=== PATIENT | female | born 1985 | race Caucasian/White ===

== ENCOUNTER 2016-06-15 20:02 | Emergency (ER) | payer OTHER ==
[2016-06-15 20:09] VITALS: BP 113/63; PULSE 79; TEMP 98.4; BMI 32.1
[2016-06-15] MEDS ORDERED: diphenhydrAMINE HCL 25 MG CAPSULE (FP) PO ONE (20:09)
--- NOTE | 2016-06-15 20:12 | PDOC ---
History of Present Illness <Rush Jhaveri - Last Filed: 06/15/16 20:10> - General History Source: Patient Exam Limitations: No Limitations - History of Present Illness Initial Comments: 06/15/16 20:12 The patient is a 30 year old female, currently , with no significant past medical history who presents to the emergency department with upper extremity and lower back rash since this morning. She denies any difficulties swallowing or pain in her neck. She denies trying any new soaps or eating any new strange foods. She denies chest pain. She denies fever, chills, headache and dizziness. She denies nausea, vomit, diarrhea and constipation. Allergies: NKA Past surgical history: denies Social History: denies EtOH use, drug use, and tobacco. PCP: Does not have one at the moment. <Jacob Gilliam - Last Filed: 06/15/16 20:13> - General Chief Complaint: Rash Stated Complaint: RASH Time Seen by Provider: 06/15/16 20:06 Past History - Past Medical History Asthma: No Cancer: No Cardiac Disorders: No Diabetes: No HTN: No Seizures: No Thyroid Disease: No - Psycho/Social/Smoking Cessation Hx Suicidal Ideation: No Smoking History: Never smoked Have you smoked in the past 12 months: No Hx Alcohol Use: No Drug/Substance Use Hx: No Substance Use Type: None Hx Substance Use Treatment: No <Rush Jhaveri - Last Filed: 06/15/16 20:10> <Jacob Gilliam - Last Filed: 06/15/16 20:13> - Past Medical History Allergies/Adverse Reactions: Allergies Allergy/AdvReac Type Severity Reaction Status Date / Time No Known Allergies Allergy Verified 07/21/15 10:38 Home Medications: Ambulatory Orders NK [No Known Home Medication] 06/15/16 Review of Systems - Review of Systems Able to Perform ROS?: Yes Comments:: 06/15/16 20:12 GENERAL/CONSTITUTIONAL: No fever or chills. No weakness. HEAD, EYES, EARS, NOSE AND THROAT: No change in vision. No ear pain or discharge. No sore throat. CARDIOVASCULAR: No chest pain or shortness of breath. RESPIRATORY: No cough, wheezing, or hemoptysis. GASTROINTESTINAL: No nausea, vomiting, diarrhea or constipation. GENITOURINARY: No dysuria, frequency, or change in urination. MUSCULOSKELETAL: No joint or muscle swelling or pain. No neck or back pain. SKIN: Yes rash NEUROLOGIC: No headache, vertigo, loss of consciousness, or change in strength/ sensation. ENDOCRINE: No increased thirst. No abnormal weight change. HEMATOLOGIC/LYMPHATIC: No anemia, easy bleeding, or history of blood clots. ALLERGIC/IMMUNOLOGIC: No hives or skin allergy. <Jacob Gilliam - Last Filed: 06/15/16 20:13> *Physical Exam - Vital Signs Last Vital Signs Temp Pulse Resp BP Pulse Ox 98.4 F 79 16 113/63 100 06/15/16 20:07 06/15/16 20:07 06/15/16 20:07 06/15/16 20:07 06/15/16 20:07 - Physical Exam General Appearance: Yes: Nourished, Appropriately Dressed. No: Apparent Distress HEENT: positive: Normal ENT Inspection, Normal Voice Neck: positive: Supple. negative: Tender, Stridor Respiratory/Chest: positive: Lungs Clear, Normal Breath Sounds. negative: Respiratory Distress Cardiovascular: positive: Regular Rhythm, Regular Rate Gastrointestinal/Abdominal: positive: Soft. negative: Tender Integumentary: positive: Normal Color, Rash (TRUNK AND UPPER EXTREMITIES C/W URTICARIA) Neurologic: positive: Fully Oriented, Alert, Normal Mood/Affect, Normal Response , Motor Strength 5/5 <Rush Jhaveri - Last Filed: 06/15/16 20:10> - Vital Signs Last Vital Signs Temp Pulse Resp BP Pulse Ox 98.4 F 79 16 113/63 100 06/15/16 20:07 06/15/16 20:07 06/15/16 20:07 06/15/16 20:07 06/15/16 20:07 <Jacob Gilliam - Last Filed: 06/15/16 20:13> *DC/Admit/Observation/Transfer <Rush Jhaveri - Last Filed: 06/15/16 20:10> - Attestations Scribe Attestion: 06/15/16 20:13 Documentation prepared by Jacob Gilliam, acting as family practice medical doctor for Rush Jhaveri MD. <Jacob Gilliam - Last Filed: 06/15/16 20:13> Diagnosis at time of Disposition: Urticaria - Discharge Dispostion Disposition: HOME Condition at time of disposition: Stable - Patient Instructions Additional Instructions: TAKE MEDICATIONS PRESCRIBED SEE YOUR DOCTOR TOMORROW RETURN IF WORSENING OR NEW SYMPTOMS SPECIALLY DIFFICULTY IN BREATHING OR SWALLOWING, SWELLING, CHANGES IN VOICE
[2016-06-15] MEDS ORDERED: diphenhydrAMINE HCL 50 MG CAPSULE ONE (20:13)
== END 2016-06-15 20:17 | disposition home or self-care (01) ==
LOC: FER 20:02
DX: O26.899 Other specified pregnancy related conditions, unspecified trimester (principal); R21 Rash and other nonspecific skin eruption
CPT/HCPCS: 99281-25

== ENCOUNTER 2016-06-24 13:44 | Emergency (ER) | payer OTHER ==
[2016-06-24 13:59] VITALS: BMI 32.1
--- NOTE | 2016-06-24 18:19 | PDOC ---
[id number] VAGINAL BLEEDING Time Seen by Provider: 06/24/16 18:03 - History of Present Illness Initial Comments: 06/24/16 18:13 CHIEF COMPLAINT: vaginal bleeding x 2 days, (unknown EGA) HISTORY OF PRESENT ILLNESS: 30 yo F with no PMH presents to ED with vaginal bleeding x 2 days. Patient states the bleeding began 2 days ago and has gotten heavier, with bigger clots today. She states her last LMP was "sometime in April" but is unsure when. She denies any nausea, vomiting, diarrhea, urinary symptoms, rectal bleeding, blood in stol. She reports having some suprapubic discomfort and "starting to have some lower back pain." She states her blood type is O-. Patient reports that she has an appointment in [place] with a new OB doctor on Sunday. PAST MEDICAL HISTORY: Denies past medical history FAMILY HISTORY: Denies SOCIAL HISTORY: Denies tobacco, alcohol, illicit drug use. SURGICAL HISTORY: Denies ALLERGIES: No known drug allergies REVIEW OF SYSTEMS General/Constitutional: Denies fever or chills. HEENT: Denies change in vision. Denies ear pain or discharge. Denies sore throat. Cardiovascular: Denies chest pain or shortness of breath. Respiratory: Denies cough, wheezing, or hemoptysis. Gastrointestinal: Vaginal bleeding x 2 days, mild suprapubic cramping. "A little nausea." Denies vomiting, diarrhea or constipation. Denies rectal bleeding. Genitourinary: Denies dysuria, frequency, or change in urination. Musculoskeletal: Denies joint or muscle swelling or pain. Denies neck or back pain. Skin and breasts: Denies rash or easy bruising. Neurologic: Denies headache, vertigo, loss of consciousness, or loss of sensation. PHYSICAL EXAM General Appearance: Well-appearing, appropriately dressed. No apparent distress , no intoxication. HEENT: EOMI, PERRLA, normal voice. No conjunctival pallor. No photophobia, scleral icterus. Respiratory/Chest: Lungs CTAB. Cardiovascular: RRR. S1, S2. Gastrointestinal/Abdominal: Normal bowel sounds. Abdomen soft, non-distended. No tenderness or rebound tenderness. No organomegaly, pulsatile mass, guarding , hernia, hepatomegaly, splenomegaly. Pelvic: External genitalia normal without lesions. Bloody discharge and multiple clots appreciated to vaginal vault Cervix is minimally dilated. No cervical motion tenderness. Uterus is nontender and normal in size. Adnexa are nontender and without masses. Lymphatic: No adenopathy, tenderness. Musculoskeletal/Extremities: Normal inspection. FROM of all extremities, normal capillary refill. Pelvis Stable. No CVA tenderness. No tenderness to extremities, pedal edema, swelling, erythema or deformity. Integumentary: Appropriate color, dry, warm. No cyanosis, erythema, jaundice or rash Neurologic: gasoline finisher II-XII intact. Fully oriented, alert. Appropriate mood/affect. Motor strength 5/5. No appreciable EOM palsy, facial droop or sensory deficit. Past History - Past Medical History Allergies/Adverse Reactions: Allergies Allergy/AdvReac Type Severity Reaction Status Date / Time No Known Allergies Allergy Verified 06/24/16 13:59 Home Medications: Ambulatory Orders Diphenhydramine HCl [Benadryl -] 25 mg PO Q6H #20 capsule 06/15/16 Famotidine [Pepcid] 20 mg PO DAILY #7 tablet 06/15/16 Asthma: No Cancer: No Cardiac Disorders: No Diabetes: No HTN: No Seizures: No Thyroid Disease: No Other medical history: denies - Psycho/Social/Smoking Cessation Hx Anxiety: No Suicidal Ideation: No Smoking History: Never smoked Have you smoked in the past 12 months: No Hx Alcohol Use: No Drug/Substance Use Hx: No Substance Use Type: None Hx Substance Use Treatment: No *Physical Exam - Vital Signs Last Vital Signs Temp Pulse Resp BP Pulse Ox 98.5 F 76 18 116/68 98 06/24/16 13:57 06/24/16 13:57 06/24/16 13:57 06/24/16 13:57 06/24/16 13:57 ED Treatment Course - LABORATORY CBC & Chemistry Diagram: 06/24/16 18:58 Medical Decision Making - Medical Decision Making 06/24/16 18:34 30 yo F with no PMH presents to ED with vaginal bleeding x 3 days. Clinical presentation consistent with spontaneous . -CBC, T&S, beta hCG -Transvaginal US eval for IUP 06/24/16 18:40 Case discussed in detail with oncoming emergency provider including history, physical exam and ancillary studies. In brief, this patient is being seen in the ED for a chief complaint of: vag blg x 2 days I have completed the initial assessment interview note and have ordered the following labs: CBC, T&S, beta hCG I have reviewed the following results: pending Patient has appt with OB on Sunday in [place]. Plan for disposition as follows: Rhogam, discharge home, f/u with OB Oncoming NPA Gonzalez has assumed care for the patient and will complete the evaluation and treatment. *DC/Admit/Observation/Transfer Diagnosis at time of Disposition: discharged, Missed - Discharge Dispostion Disposition: HOME Condition at time of disposition: Stable - Patient Instructions Printed Discharge Instructions: DI for Miscarriage Additional Instructions: Your Discharge Instructions: You must call primary care physician within 24 hours to arrange follow-up. Return to the Emergency Department with any new, persistent or worsening symptoms, for fever, chills, SOB, dizziness or any other concerning changes that may occur.
[2016-06-24 19:23] LABS: MCH 27.8 pg (25.7-33.7); MCHC 32.9 g/dl (32.0-36.0); MEAN CELL VOLUME 84.7 fl (80-96); MEAN PLT VOLUME 9.6 fl (7.5-11.1); PLATELET COUNT 234 K/MM3 (134-434); RDW 14.3 % (11.6-15.6); WHITE BLOOD COUNT 10.6 K/mm3 (4.0-10.0)
[2016-06-24 19:33] LABS: URINE APPEARANCE CLEAR; URINE BILIRUBIN NEGATIVE (NEGATIVE); URINE COLOR YELLOW; URINE GLUCOSE (UA) NEGATIVE (NEGATIVE); URINE KETONE NEGATIVE (NEGATIVE); URINE LEUK ESTERASE NEGATIVE (NEGATIVE); URINE NITRITE NEGATIVE (NEGATIVE); URINE PROTEIN NEGATIVE (NEGATIVE); URINE UROBILINOGEN NEGATIVE E.U./dl (0.2-1.0)
[2016-06-24 19:35] LABS: URINE BLOOD 3+ (NEGATIVE)
[2016-06-24 19:36] LABS: URINE RBC 27 /hpf (0-3); URINE WBC 3 /hpf (3-5)
[2016-06-24] MEDS ORDERED: RHO(D) IMMUNE GLOBULIN 1,500 UNIT DISP.SYRIN IM ONE (20:42)
--- NOTE | 2016-06-24 20:46 | PDOC ---
*Physical Exam - Vital Signs Last Vital Signs Temp Pulse Resp BP Pulse Ox 98.5 F 76 18 116/68 98 06/24/16 13:57 06/24/16 13:57 06/24/16 13:57 06/24/16 13:57 06/24/16 13:57 ED Treatment Course - LABORATORY CBC & Chemistry Diagram: 06/24/16 18:58 - ADDITIONAL ORDERS Additional order review: Laboratory Results 06/24/16 06/24/16 06/24/16 18:58 18:58 18:58 Beta HCG, Quant 9369.4 Urine Color Yellow Urine Appearance Clear Urine pH 5.0 Ur Specific Gilson 1.016 Urine Protein Negative Urine Glucose (UA) Negative Urine Ketones Negative Urine Blood 3+ H Urine Nitrite Negative Urine Bilirubin Negative Urine Urobilinogen Negative Ur Leukocyte Esterase Negative Urine RBC 27 Urine WBC 3 Ur Epithelial Cells Rare Blood Type O NEGATIVE Antibody Screen Negative 06/24/16 18:58 RBC 4.44 MCV 84.7 MCHC 32.9 RDW 14.3 D MPV 9.6 Medical Decision Making - Medical Decision Making 06/24/16 20:45 patient endorsed to me by JOHN Poe to follow labs, US and disposition. 06/24/16 22:27 Patient is O neg will give rhogam US shows 6 wks + with no heart beat. symptoms of consistent with the miscarriage. Patient has appointment on Sunday with her OBS will have her follow up as scheduled for repeat hcg I discussed the physical exam findings, ancillary test results and final diagnoses with the patient. I answered all of the patient's questions. The patient was satisfied with the care received and felt comfortable with the discharge plan and treatment plan. The Patient agrees to follow up with the primary care physician within 24-72 hours. *DC/Admit/Observation/Transfer Diagnosis at time of Disposition: discharged, Missed - Discharge Dispostion Disposition: HOME Condition at time of disposition: Stable - Patient Instructions Printed Discharge Instructions: DI for Miscarriage Additional Instructions: Your Discharge Instructions: You must call primary care physician within 24 hours to arrange follow-up. Return to the Emergency Department with any new, persistent or worsening symptoms, for fever, chills, SOB, dizziness or any other concerning changes that may occur.
[2016-06-24 22:14] VITALS: BP 110/80; PULSE 71; TEMP 98.1
== END 2016-06-24 23:16 | disposition home or self-care (01) ==
LOC: JER 13:44
PROC: 3E0234Z Introduction of Serum, Toxoid and Vaccine into Muscle, Percutaneous Approach (ICD-10-PCS; principal; 2016-06-24)
DX: O02.1 Missed abortion (principal); O36.0910 Maternal care for other rhesus isoimmunization, first trimester, not applicable or unspecified; Z3A.01 Less than 8 weeks gestation of pregnancy
CPT/HCPCS: 36415; 76817-TC; 81003; 81015; 84702; 85027; 86850; 86900; 86901; 86999; 87086; 96372; 99284-25; J1561

== ENCOUNTER 2017-02-17 11:48 | Emergency (ER) | payer SELFPAY ==
[2017-02-17 11:59] VITALS: BP 118/86; PULSE 95; TEMP 98.8; BMI 32.1
[2017-02-17] MEDS ORDERED: LIDOCAINE VISCOUS 2% ORAL/TOP 20 ML UNIT-DOSE CUP MM ONE (12:07)
--- NOTE | 2017-02-17 12:07 | PDOC ---
History of Present Illness - General Chief Complaint: Sore Throat Stated Complaint: FEVER, SORE THROAT, ORAL BLISTERS Time Seen by Provider: 02/17/17 11:53 History Source: Patient Exam Limitations: No Limitations - History of Present Illness Initial Comments: 31 yo F no significant PMH presents with 3 days history of fever/chills, sore throat. She states it has become painful to swallow, and now she has developed multiple blisters on her tongue and lips. Tolerating secretions. No vomiting. Denies cough, cp, SOB. Past History - Past Medical History Allergies/Adverse Reactions: Allergies Allergy/AdvReac Type Severity Reaction Status Date / Time No Known Allergies Allergy Verified 02/17/17 11:55 Home Medications: Ambulatory Orders Sucralfate [Carafate] 1 gm PO ASDIR #40 ml 02/17/17 Asthma: No Cancer: No Cardiac Disorders: No Diabetes: No HTN: No Seizures: No Thyroid Disease: No - Reproductive History (#): 3 Para: 2 - Suicide/Smoking/Psychosocial Hx Smoking History: Never smoked Have you smoked in the past 12 months: No Hx Alcohol Use: No Drug/Substance Use Hx: No Substance Use Type: None Hx Substance Use Treatment: No *Physical Exam - Vital Signs Last Vital Signs Temp Pulse Resp BP Pulse Ox 98.8 F 95 H 15 118/86 100 02/17/17 11:52 02/17/17 11:52 02/17/17 11:52 02/17/17 11:52 02/17/17 11:52 - Physical Exam Comments: GENERAL: Awake, alert, and fully oriented, in no acute distress. HEAD: No signs of trauma. EYES: PERRLA, EOMI, sclera anicteric, conjunctiva clear. ENT: Auricles normal inspection, hearing grossly normal, nares patent, oropharynx clear without exudates. Moist mucosa. +Vesicular lesions to the upper lip and left side of tongue. Uvula midline. No tonsillar hypertrophy, no exudates. NECK: Normal ROM, supple, JVD, or masses. +Anterior cervical lymphadenopathy. LUNGS: Breath sounds equal, clear to auscultation bilaterally. No wheezes, and no crackles. HEART: Regular rate and rhythm, normal S1 and S2, no murmurs, rubs or gallops. ABDOMEN: Soft, nontender, normoactive bowel sounds. No guarding, no rebound. No masses. EXTREMITIES: Normal range of motion, no edema. No clubbing or cyanosis. No cords , erythema, or tenderness. NEUROLOGICAL: Cranial nerves II through XII grossly intact. Normal speech, normal gait. SKIN: Warm, Dry, normal turgor, no rashes or lesions except as noted above. *DC/Admit/Observation/Transfer Diagnosis at time of Disposition: Pharyngitis Qualifiers: Pharyngitis/tonsillitis etiology: Coxsackie virus Qualified Code(s): B08.5 - Enteroviral vesicular pharyngitis - Discharge Dispostion Disposition: HOME Condition at time of disposition: Stable Admit: No - Prescriptions Prescriptions: Sucralfate [Carafate] 1 gm PO ASDIR #40 ml - Patient Instructions Printed Discharge Instructions: DI for Pharyngitis/Tonsillopharyngitis -- Adult , DI for Viral Pharyngitis Additional Instructions: MAGIC MOUTHWASH Combine the following- Sucralfate (carafate) 4G (the entire amount that was prescribed) Mylanta 60 mL Benadryl 12.5mg/5mL (children's version, not adult) 30 mL Combine all ingredients. Swish and spit or swallow 5mL three times per day before meals as needed. Do not take more than 40 mL per day.
[2017-02-17] MEDS ORDERED: LIDOCAINE VISCOUS 2% ORAL/TOP 100 ML BOTTLE ONE (12:12)
== END 2017-02-17 12:28 | disposition home or self-care (01) ==
LOC: FER 11:48
DX: B08.5 Enteroviral vesicular pharyngitis (principal)
CPT/HCPCS: 87070; 87430; 99281-25

== ENCOUNTER 2020-10-25 14:35 | Emergency (ER) | payer OTHER ==
[2020-10-25 15:01] VITALS: BP 138/80; PULSE 82; TEMP 98.6; BMI 34.9
== END 2020-10-25 14:51 | disposition left against medical advice (07) ==
LOC: FER 14:35
DX: R07.9 Chest pain, unspecified (principal)
CPT/HCPCS: 99283-25

== ENCOUNTER 2020-10-25 15:11 | Emergency (ER) | payer OTHER ==
[2020-10-25 15:35] VITALS: BP 120/85; PULSE 66; TEMP 98; BMI 34.9
[2020-10-25 17:08] LABS: BASO % 0.4 % (0-2.0); EOS % 1.6 % (0-4.5); HEMATOCRIT 39.4 % (32.4-45.2); HEMOGLOBIN 12.9 GM/dL (10.7-15.3); LYMPH % 29.9 % (8-40); MCH 27.8 pg (25.7-33.7); MCHC 32.9 g/dl (32.0-36.0); MEAN CELL VOLUME 84.4 fl (80-96); MEAN PLT VOLUME 9.2 fl (7.5-11.1); MONO % 8.8 % (3.8-10.2); NEUT % 59.3 % (42.8-82.8); PLATELET COUNT 246 10^3/uL (134-434); RBC 4.66 M/mm3 (3.60-5.2); WHITE BLOOD COUNT 8.5 K/mm3 (4.0-10.0)
[2020-10-25 17:12] LABS: CHLORIDE 105 mmol/L (98-107); SODIUM 139 mmol/L (136-145)
[2020-10-25 17:16] LABS: ALBUMIN 3.9 g/dl (3.4-5.0); ANION GAP 6 MMOL/L (8-16); BLOOD UREA NITROGEN 8.3 mg/dL (7-18); CALCIUM 8.9 mg/dL (8.5-10.1); CO2 27 mmol/L (21-32); GLUCOSE,RANDOM 82 mg/dL (74-106)
[2020-10-25 17:19] LABS: CREATININE 0.6 mg/dL (0.55-1.3); SGOT/AST 17 U/L (15-37); SGPT/ALT 30 U/L (13-61)
[2020-10-25 17:20] LABS: BILIRUBIN,TOTAL 0.3 mg/dL (0.2-1); TOT PROT 7.4 g/dl (6.4-8.2)
[2020-10-25 17:21] LABS: ALK PHOS 98 U/L (45-117)
[2020-10-25] MEDS ORDERED: NAPROXEN 500 MG TABLET PO ONE (17:21)
[2020-10-25] MEDS ORDERED: NAPROXEN 500 MG TABLET ONE (17:29)
== END 2020-10-25 17:35 | disposition home or self-care (01) ==
LOC: JER 15:11
DX: M94.0 Chondrocostal junction syndrome [Tietze] (principal); R07.9 Chest pain, unspecified
CPT/HCPCS: 36415; 71046-TC-FY; 80053; 82550; 84484; 84703; 85025; 93005; 93010; 99285-25

== ENCOUNTER 2021-05-04 22:43 | Emergency (ER) | payer OTHER ==
[2021-05-04 22:55] VITALS: BP 112/70; PULSE 80; TEMP 98.1; BMI 37.4
== END 2021-05-04 22:59 | disposition home or self-care (01) ==
LOC: FER 22:43
DX: R10.9 Unspecified abdominal pain (principal)
CPT/HCPCS: 99283-25

== ENCOUNTER 2021-12-10 16:34 | Emergency (ER) | payer OTHER ==
[2021-12-10 16:46] VITALS: BP 111/77; PULSE 69; RESP 18; TEMP 99.3; BMI 37.8
[2021-12-10 17:29] LABS: HCG,QUALITATIVE URINE Negative
[2021-12-10 17:44] LABS: BILIRUBIN,TOTAL 0.5 mg/dl (0.2-1); CALCIUM 9.3 mg/dl (8.5-10); CREATININE 0.7 mg/dl (0.55-1.3)
[2021-12-10 17:48] LABS: EPITHELIAL CELLS FEW /hpf
[2021-12-10 17:54] LABS: HEMATOCRIT 39.6 % (32.4-45.2); HEMOGLOBIN 13.6 G/dL (10.7-15.3); MCH 27.8 pg (25.7-33.7); MCHC 34.3 g/dl (32.0-36.0); MEAN CELL VOLUME 80.9 fl (80-96); MEAN PLT VOLUME 9.2 fl (7.5-11.1); PLATELET COUNT 265.8 10^3/uL (134-434); RDW 15.8 % (11.6-15.6); WHITE BLOOD COUNT 8.2 10^3/uL (4.0-10.8)
[2021-12-10 18:01] LABS: PLATELET ESTIMATE ADEQUATE
== END 2021-12-10 18:22 | disposition home or self-care (01) ==
LOC: FER 16:34
DX: K80.50 Calculus of bile duct without cholangitis or cholecystitis without obstruction (principal)
CPT/HCPCS: 36415; 80053; 81003; 81015; 84703; 85027; 99283-25